=== PATIENT | male | born 1985 | race Caucasian/White ===

== ENCOUNTER 2025-02-02 09:11 | Emergency (ER) | payer MEDICAID, OTHER ==
[2025-02-02 09:36] LABS: #Basophils 0.03 10x3/uL (0.0-0.2); #Eosinophils 0.40 10x3/uL (0.0-0.7); #Monocytes 0.47 10x3/uL (0.11-0.59); #Neutrophils 4.41 10x3/uL (1.40-6.50); %Basophils 0.5 % (0.0-1.0); %Eosinophils 6.0 % (0.0-10.0); %Lymphocytes 19.6 % (21.0-51.0); %Monocytes 7.1 % (0.0-10.0); %Neutrophils 66.5 % (42.0-75.0); Hematocrit 49.3 % (42.0-52.0); Hemoglobin 16.2 g/dL (14.0-18.0); Mean Corpuscular Hemoglobin 28.1 pg (27.0-31.0); Mean Corpuscular Volume 85.6 fL (78.0-98.0); Platelet Count 178 10x3/uL (130-400); Red Blood Cell (RBC) Count 5.76 mill/uL (4.70-6.10); White Blood Cell (WBC) Count 6.63 10x3/uL (4.8-10.8)
[2025-02-02 10:00] LABS: ALT (SGPT) 29 U/L (Less than 45); AST (SGOT) 27 U/L (11-34); Albumin 4.3 g/dL (3.1-4.5); Alkaline Phosphatase 105 U/L (40-110); Anion Gap 21 mmol/L (10-20); BUN (Urea Nitrogen) 10 mg/dL (8.9-20.6); Bilirubin, Total 0.5 mg/dL (0.3-1.2); Calc. Creatinine Clearance 0 mL/min (70-130); Calcium 9.8 mg/dL (7.8-10.44); Carbon Dioxide 18 mmol/L (22-29); Chloride 108 mmol/L (98-107); Globulin 2.6 g/dL (2.4-3.5); Glucose 86 mg/dL (70-105); Potassium 4.8 mmol/L (3.5-5.1); Sodium 142 mmol/L (136-145)
[2025-02-02] MEDS ORDERED: levETIRAcetam 500 MG (5 mL) VIAL ONE (10:19)
== END 2025-02-02 12:00 | disposition home or self-care (01) ==
LOC: ERS 09:11
DX: G40.909 Epilepsy, unspecified, not intractable, without status epilepticus (principal); S06.9XAA Unspecified intracranial injury with loss of consciousness status unknown, initial encounter; Z79.899 Other long term (current) drug therapy; X58.XXXA Exposure to other specified factors, initial encounter
CPT/HCPCS: 70450; 80053; 80177; 84146; 85025; 96365; J1953

== ENCOUNTER 2025-03-22 17:20 | Emergency (ER) | payer MEDICAID, OTHER ==
[2025-03-22 18:23] LABS: #Basophils 0.05 10x3/uL (0.0-0.2); #Eosinophils 0.47 10x3/uL (0.0-0.7); #Monocytes 0.43 10x3/uL (0.11-0.59); #Neutrophils 2.32 10x3/uL (1.40-6.50); %Basophils 0.9 % (0.0-1.0); %Eosinophils 8.9 % (0.0-10.0); %Lymphocytes 37.8 % (21.0-51.0); %Monocytes 8.2 % (0.0-10.0); %Neutrophils 44.0 % (42.0-75.0); Hematocrit 45.9 % (42.0-52.0); Hemoglobin 15.2 g/dL (14.0-18.0); Mean Corpuscular Hemoglobin 28.6 pg (27.0-31.0); Mean Corpuscular Volume 86.3 fL (78.0-98.0); Platelet Count 172 10x3/uL (130-400); Red Blood Cell (RBC) Count 5.32 mill/uL (4.70-6.10); White Blood Cell (WBC) Count 5.27 10x3/uL (4.8-10.8)
[2025-03-22 18:42] LABS: ALT (SGPT) 13 U/L (Less than 45); AST (SGOT) 20 U/L (11-34); Albumin 4.0 g/dL (3.1-4.5); Alkaline Phosphatase 95 U/L (40-110); Anion Gap 10 mmol/L (10-20); BUN (Urea Nitrogen) 10 mg/dL (8.9-20.6); Bilirubin, Total 0.6 mg/dL (0.3-1.2); Calc. Creatinine Clearance 0 mL/min (70-130); Calcium 9.3 mg/dL (7.8-10.44); Carbon Dioxide 26 mmol/L (22-29); Chloride 109 mmol/L (98-107); Globulin 2.5 g/dL (2.4-3.5); Glucose 88 mg/dL (70-105); Potassium 4.3 mmol/L (3.5-5.1); Sodium 141 mmol/L (136-145)
[2025-03-23] MEDS ORDERED: Acetaminophen 500 MG TAB ONE (01:38)
== END 2025-03-23 01:34 ==
LOC: ERS 17:20
DX: S00.93XA Contusion of unspecified part of head, initial encounter (principal); W19.XXXA Unspecified fall, initial encounter; Y92.129 Unspecified place in nursing home as the place of occurrence of the external cause
CPT/HCPCS: 36415; 70450; 71045; 80053; 85025; 93005